=== PATIENT | male | born 1980 | race American Indian/Alaskan Native ===

== ENCOUNTER 2019-11-05 02:28 | Emergency (ER) | payer BC ==
[2019-11-05 02:43] VITALS: BP 101/65
== END 2019-11-05 03:00 | disposition left against medical advice (07) ==
LOC: ED 02:28
DX: N48.89 Other specified disorders of penis (principal); Z53.21 Procedure and treatment not carried out due to patient leaving prior to being seen by health care provider

== ENCOUNTER 2020-07-12 15:20 | Emergency (ER) | payer BC ==
[2020-07-12 15:51] VITALS: BP 121/79
--- NOTE | 2020-07-12 15:57 | Emergency Department Report ---
Stated Complaint: POSS STD Time Seen by Provider: 07/12/20 15:50 - HPI History of Present Illness: 39-year-old -[place] male patient presents with complaints of clear penile discharge and dysuria x4 days. He denies any abdominal pain, hematuria, penile/testicular lesions/swelling, fever/chills/sweats, throat pain, or painful/swollen joints. He reports recent unprotected intercourse. No prior medical history per patient. Recommend patient follows up with urgent care or the health department or his primary care provider for evaluation and treatment of possible STI. His vitals are normal, he is well-appearing, he is stable for discharge home. Strict return precautions were discussed in detail with patient who verbalized understanding. MSE screening note: Focused history and physical exam performed. Due to findings the following was ordered: ED Disposition for MSE Clinical Impression: Penile discharge, Dysuria Disposition: Z- MED SCREENING EXAM-LEFT Is pt being admited?: No Condition: Stable Instructions: Dysuria ED Physical Exam - General General appearance: alert, in no apparent distress - Head Head exam: Present: atraumatic, normocephalic - Eye Eye exam: Present: normal appearance - ENT ENT exam: Present: normal exam - Neck Neck exam: Present: normal inspection - Respiratory Respiratory exam: Absent: respiratory distress - exam: Present: other (Patient declined exam) - Extremities Exam Extremities exam: Present: full ROM. Absent: joint swelling - Back Exam Back exam: Present: normal inspection - Neurological Exam Neurological exam: Present: alert, oriented X3, normal gait - Psychiatric Psychiatric exam: Present: normal affect, normal mood - Skin Skin exam: Present: warm, dry, intact, normal color. Absent: rash ED Review of Systems ROS: Stated complaint: POSS STD Other details as noted in HPI Constitutional: denies: chills, diaphoresis, fever, malaise, weakness ENT: denies: throat pain Respiratory: denies: cough, shortness of breath Cardiovascular: denies: chest pain Gastrointestinal: denies: abdominal pain Genitourinary: dysuria, discharge. denies: frequency, hematuria, testicular pain, testicular mass Musculoskeletal: denies: joint swelling, arthralgia Skin: denies: rash, lesions, change in color Hematological/Lymphatic: denies: easy bleeding, swollen glands
== END 2020-07-12 17:38 | disposition left against medical advice (07) ==
LOC: ED 15:20
DX: R36.9 Urethral discharge, unspecified (principal); R30.0 Dysuria; Z53.21 Procedure and treatment not carried out due to patient leaving prior to being seen by health care provider